=== PATIENT | male | born 1955 | race Hispanic/Latino ===

== ENCOUNTER → 2023-03-11 | Outpatient (CLI) | payer OTHER ==
[~2023-03-11] MED LIST: REGADENOSON 0.4 MG/5 ML PF SYG IVP ONE
== END | disposition home or self-care (01) ==
LOC: SHCH 08:36
PROVIDERS: ATTEND Internal Medicine Cardiovascular Disease
DX: R07.9 Chest pain, unspecified (principal); I25.9 Chronic ischemic heart disease, unspecified; I48.91 Unspecified atrial fibrillation; I48.92 Unspecified atrial flutter; I25.10 Atherosclerotic heart disease of native coronary artery without angina pectoris; I10 Essential (primary) hypertension; E78.5 Hyperlipidemia, unspecified; Z95.1 Presence of aortocoronary bypass graft
CPT/HCPCS: 78452; 96374; 93017; J2785; A9500 ×2

== ENCOUNTER → 2023-06-29 | Outpatient (CLI) | payer OTHER | END | disposition home or self-care (01) | LOC: RESP 12:39 | PROVIDERS: ATTEND Chiropractor | DX: G47.30 Sleep apnea, unspecified (principal); J45.909 Unspecified asthma, uncomplicated | CPT/HCPCS: 94060 ==

== ENCOUNTER → 2024-01-06 | Outpatient (CLI) | payer OTHER | LOC: SHCH 14:44 | PROVIDERS: ATTEND Internal Medicine Cardiovascular Disease | DX: I34.81 Nonrheumatic mitral (valve) annulus calcification (principal); I25.10 Atherosclerotic heart disease of native coronary artery without angina pectoris; I51.7 Cardiomegaly | CPT/HCPCS: 93306 ==

== ENCOUNTER 2025-01-08 23:08 | Emergency (ER) | payer OTHER ==
[~2025-01-08] VITALS: Ht 188 cm; Wt 95.7 kg
--- NOTE | 2025-01-09 00:51 | ERN ---
ED Note History of Present Illness Stated Complaint: C/O EPIGASTRIC PAIN Chief Complaint: Abdominal Pain Time Seen by MD: 00:29 Dictation: This is a 69-year-old male who came into the ER with severe epigastric pain and bloating. He stated that he had colonoscopy at 9:00 a.m. which was uneventful other than that patient was not adequately sedated and he was able to feel the pain and discomfort. He did fine all day and for dinner he apparently added extra picante sauce and hot spice and he started experiencing severe epigastric pain and discomfort. No nausea vomitings diarrhea hematemesis or melena. Temperature 98.2 pulse 72 respirations 20 blood pressure 169/81 with a pulse oximetry of 98% on room air His chronic medical problems include hypertension hyperlipidemia and coronary ar nico disease. He had CABG in 2016 Allergies: Coded Allergies: No Known Allergies (Unverified Allergy, Mild, 04/19/13) Past Medical History Past Medical History: High Cholesterol, Heart Disease, Hypertension Surgical History: Other Surgical History Other: QUADRUPLE BYPASS (2016) Family History: Negative Social History: Negative RN Note Reviewed/Agreed w/PFSH: Yes Review of System Dictation Constitutional: Negative for fever,chills, and weight loss Eyes: Negative for injury, pain,redness, and discharge ENT: Negative for injury,pain or swelling Cardiovascular: Negative for chest pain, palpitations, and edema Respiratory: Negative for shortness of breath, cough, and wheezing, Abdomen/GI: Positive for abdominal pain, denied nausea, vomiting, diarrhea, and constipation Back: Negative for injury and pain : Negative for injury, bleeding and discharge MS/Extremity: Negative for injury and deformity Skin: Negative for rash, and discoloration Neuro: Negative for headache, weakness, numbness, tingling, and seizure Psych: Negative for suicide ideation, homicidal ideation, and hallucinations Initial Vital Sign VS Vital Signs Date Time Temp Pulse Resp B/P (MAP) Pulse Ox O2 Delivery O2 Flow Rate FiO2 01/08/25 23:10 98.2 72 20 169/81 98 Room Air 01/09/25 01:56 0 21 Physical Exam Dictation General: awake, alert, NAD Head/Face: Normocephalic, atraumatic Eyes: PERRL, EOMI, vision at baseline ENT: oral cavity clear, TMs clear, no signs of infection Neck: Trachea midline, supple, no nuchal rigidity Cardiovascular: RRR, normal S1/S2, No MRGs, no JVD Respiratory: CTAB, no respiratory distress, No rales or wheezes Abdomen: Soft, mild tenderness in the epigastrium, obese non-distended, normal bowel sounds, no guarding or rebound. Skin: Warm, dry, normal turgor, no rash MS/Extremity: Pulses equal, no cyanosis, neurovascular intact, FROM Neuro: COAx4, GCS 15, strength 5/5, CN 2-12 intact, normal cerebellar exam, normal gait, Psych: Normal behavior, mood, and affect normal Extremities-trace edema without any palpable cords, Homans sign is negative Results (Laboratory/Radiology) Laboratory/Radiology Laboratory Tests Test 01/09/25 01:00 White Blood Count 9.7 K/uL (4.8-10.8) Red Blood Count 4.92 MIL/uL (4.50-6.20) Hemoglobin 14.6 g/dL (14.0-18.0) Hematocrit 42.5 % (42-54) Mean Corpuscular Volume 86.4 fL (79-99) Mean Corpuscular Hemoglobin 29.7 pg (27.0-33.0) Mean Corpuscular Hemoglobin Concent 34.4 g/dL (32.0-36.0) Red Cell Distribution Width 12.7 % (11.0-15.5) Platelet Count 208 K/uL (130-400) Mean Platelet Volume 11.0 fL (7.5-10.5) H Immature Granulocyte % (Auto) 0.3 % (0-1) Neutrophils (%) (Auto) 85.6 % (40.0-77.0) H Lymphocytes (%) (Auto) 8.8 % (21.0-51.0) L Monocytes (%) (Auto) 4.8 % (3.0-13.0) Eosinophils (%) (Auto) 0.3 % (0.0-8.0) Basophils (%) (Auto) 0.2 % (0.0-5.0) Neutrophils # (Auto) 8.3 K/uL (1.8-7.7) H Lymphocytes # (Auto) 0.9 K/uL (1.0-4.8) L Monocytes # (Auto) 0.5 K/uL (0.1-1.0) Eosinophils # (Auto) 0.03 K/uL (0.00-0.70) Basophils # (Auto) 0.02 K/uL (0.00-0.20) Absolute Immature Granulocyte (auto 0.03 K/uL (0-1) Nucleated Red Blood Cells 0.0 % (0.0-0.19) White Cell Morphology Comment See comments Sodium Level 139 mmol/L (136-145) Potassium Level 3.5 mmol/L (3.5-5.1) Chloride Level 103 mmol/L (101-111) Carbon Dioxide Level 31 mmol/L (21-32) Blood Urea Nitrogen 12 mg/dL (7-18) Creatinine 1.2 mg/dL (0.5-1.3) Glomerular Filtration Rate Calc 65 mL/min (>90) Random Glucose 141 mg/dL (70-105) H Total Calcium 8.9 mg/dL (8.5-10.1) Total Bilirubin 1.1 mg/dL (0.2-1.0) H Direct Bilirubin 0.3 mg/dL (0.0-0.3) Aspartate Amino Transf (AST/SGOT) 17 U/L (10-37) Alanine Aminotransferase (ALT/SGPT) 26 U/L (12-78) Alkaline Phosphatase 89 U/L (50-136) Total Protein 6.7 g/dL (6.0-8.3) Albumin 3.8 g/dL (3.5-5.0) Lipase 35 U/L (16-77) Labs Reviewed?: Yes ED Course ED Course Orders Procedure Category Date Status Time Abd 1vw RAD 01/08/25 Taken 23:32 12 Lead Ekg Tracing- EKG 01/08/25 Logged Technical 23:32 Cbc With Differential LAB 01/09/25 Complete 00:29 Basic Metabolic Panel LAB 01/09/25 Complete 00:29 Hepatic Function Panel LAB 01/09/25 Complete 00:29 Lipase LAB 01/09/25 Complete 00:29 0.9%Nacl 1000ml (Ns PHA 01/09/25 In Process 1000ml) 01:00 Morphine 2mg Syg PHA 01/09/25 Complete (Morphine 2mg Syg) 01:00 Ondansetron 4mg Inj PHA 01/09/25 Complete (Zofran 4mg Inj) 01:00 Lidocaine Hcl 2% PHA 01/09/25 Complete Viscous (Lidocaine Hcl 01:00 Mag/Alum/Simeth 30ml PHA 01/09/25 Complete (Maalox Plus 30ml) 01:00 Dicyclomine Hcl PHA 01/09/25 Complete (Bentyl 10mg/5ml 01:00 Famotidine 20mg Vial PHA 01/09/25 Complete (Pepcid 20mg Vial) 01:00 Mag/Alum/Simeth 30ml PHA 01/09/25 Complete (Maalox Plus 30ml) 02:30 Current Medications Medications (Trade) Dose Ordered Sig/Tayler Route PRN Reason Start Time Stop Time Status Last Admin Dose Admin Al Hydroxide/Mg Hydroxide (MAALox PLUS 30ML) 30 ml ONCE ONCE PO 01/09/25 01:00 01/09/25 01:01 DC 01/09/25 01:04 Al Hydroxide/Mg Hydroxide (MAALox PLUS 30ML) 30 ml ONCE ONCE PO 01/09/25 02:30 01/09/25 02:31 DC 01/09/25 02:43 Dicyclomine HCl (Bentyl 10mg/5ml Syrup) 10 mg ONCE ONCE PO 01/09/25 01:00 01/09/25 01:01 DC 01/09/25 01:04 Famotidine (Pepcid 20mg Vial) 20 mg ONCE ONCE IV 01/09/25 01:00 01/09/25 01:01 DC 01/09/25 01:04 Lidocaine HCl (Lidocaine HCl 2% Viscous) 10 ml ONCE ONCE PO 01/09/25 01:00 01/09/25 01:01 DC 01/09/25 01:04 Morphine Sulfate (morPHINE 2MG SYG) 2 mg ONCE ONCE IVP 01/09/25 01:00 01/09/25 01:01 DC 01/09/25 01:01 Ondansetron HCl (zoFRAN 4MG INJ) 4 mg ONCE ONCE IVP 01/09/25 01:00 01/09/25 01:01 DC 01/09/25 01:01 Sodium Chloride 1,000 ml @ 125 mls/hr ONCE ONCE IV 01/09/25 01:00 01/09/25 08:59 01/09/25 01:01 Vital Signs Date Time Temp Pulse Resp B/P (MAP) Pulse Ox O2 Delivery O2 Flow Rate FiO2 01/09/25 01:56 73 17 149/76 98 Room Air* 0 21 01/08/25 23:10 98.2 72 20 169/81 98 Room Air We will perform diagnostic labs, advanced imaging and administer medications according to the patient's complaint. Once the results are available, will review and personally interpreted the labs to rule out any acute life- threatening emergency the trach require immediate intervention and treatment. I will then re-evaluate the patient after treatment and diagnostic exams have return to determine whether the patient requires any further testing, can safely be discharged home or need further admission to hospital for additional treatment and evaluation. Labs reviewed CBC is with a normal limits CMP is overall normal bilirubin was 1.1 lipase 35 KUB showed nonspecific gaseous distention no air under the diaphragm 2:19 a.m. he felt 50% better with the symptomatic management and I updated him on the KUB He was requesting additional Mylanta/Maalox-we will assess response in the next 1 hour 3:20 a.m. patient is feeling significantly improved and wants to be discharged to home Medical Decision Making MDM MDM: Differential diagnosis: Gastritis, gastroesophageal reflux, perforated belly, ileus Rationale: Tests considered and ordered secondary to shared decision making include: Previous outside records reviewed: Old ER visits. Risk of complication and/or morbidity or mortality of patient management: None Medications-Per medication reconciliation Need for hospitalization: Patient does not meet criteria for hospitalization. Need for emergency major/minor surgery: No There are no social concerns with this patient. Prescription drug management Prescriptions will include symptomatic care Patient's prior external medical records from other ER visits were reviewed by me as indicated. Prior testing and results from previous visits were reviewed. Prior tests were taken into account with medical decision making and resource utilization, independent historian/historians were used to obtain complete medical history. I independently interpreted the test that were performed, results were reviewed by me and considered findings on radiology if ordered. Medical management and examination interpretation discussions were had by me with other qualified healthcare professionals as indicated for the patient's care. Problem List Problem List: (1) Abdominal pain DX & DISP Disposition: Discharge Departure Impression: Primary Impression: Abdominal pain Additional Impressions: Gastritis, Gaseous distention of intestine determined by X-ray Condition: Stable Additional Instructions: Patient and the caregiver have been informed of all the diagnostic tests and the imaging conducted during the today's visit to the emergency room and has verbalized understanding of the results I have personally reviewed and interpreted all diagnostic exams performed here in the ER today as well as the vital signs documented by the nursing staff. The patient is now being discharged to home and should follow up with the primary care physician or the specialist as directed by the ER staff. Follow-up with primary care provider in 1 to 2 days. Take medications as dire cted here in the emergency room. Okay to continue home medications unless otherwise discussed during your visit in the emergency room today. Return to your nearest emergency room if symptoms worsen or if there is no improvement. Call 911 if you need immediate assistance. Take Tylenol or Motrin [id number] as needed and if no contraindications are present. Increase oral hydration. A wound culture or urine culture was ordered here in the emergency room department please follow-up with primary care provider and advise them to get repeat ports from our facility. If you had any Diaz wrap/splints that were applied here, please do not remove them until you see your primary care or specialty. Referrals: TOBI KHAN (PCP) KAREN LESLIE MD Jan 09, 2025 00:51
[2025-01-09] MEDS: 0.9%NACL 1000ML 1,000 ML IV ONE (01:01)
[2025-01-09] MEDS: ondanSETRON 4MG INJ IVP ONE (01:01)
[2025-01-09] MEDS: morPHINE 2 MG SYG IVP ONE (01:01)
[2025-01-09] MEDS: FAMOTIDINE 20MG VIAL IV ONE (01:04)
[2025-01-09] MEDS: MAG/ALUM/SIMETH 30 ML UDCUP PO ONE ×2 (01:04→02:43)
[2025-01-09] MEDS: LIDOCAINE HCL 2% VISCOUS 15 ML UDCUP PO ONE (01:04)
[2025-01-09] MEDS: DICYCLOMINE HCL 10 MG/5 ML ML PO ONE (01:04)
[2025-01-09 01:12] LABS: BASOPHILS # (AUTO) 0.02 K/uL (0.00-0.20); BASOPHILS % (AUTO) 0.2 % (0.0-5.0); EOSINOPHILS # (AUTO) 0.03 K/uL (0.00-0.70); EOSINOPHILS % (AUTO) 0.3 % (0.0-8.0); HEMATOCRIT 42.5 % (42-54); IMMATURE GRANULOCYTE ABSOLUTE 0.03 K/uL (0-1); LYMPHOCYTES # (AUTO) 0.9 K/uL (1.0-4.8); LYMPHOCYTES % (AUTO) 8.8 % (21.0-51.0); MEAN CORPUSCULAR HEMOGLOBIN 29.7 pg (27.0-33.0); MEAN CORPUSCULAR HGB CONC 34.4 g/dL (32.0-36.0); MEAN CORPUSCULAR VOLUME 86.4 fL (79-99); MONOCYTES # (AUTO) 0.5 K/uL (0.1-1.0); MONOCYTES % (AUTO) 4.8 % (3.0-13.0); NEUTROPHILS # (AUTO) 8.3 K/uL (1.8-7.7); NEUTROPHILS % (AUTO) 85.6 % (40.0-77.0); PLATELET COUNT (AUTO) 208 K/uL (130-400); RED BLOOD CELL COUNT(AUTO) 4.92 MIL/uL (4.50-6.20); RED CELL DISTRIBUTION WIDTH 12.7 % (11.0-15.5); WHITE BLOOD COUNT (AUTO) 9.7 K/uL (4.8-10.8)
[2025-01-09 01:22] LABS: CREATININE 1.2 mg/dL (0.5-1.3); POTASSIUM 3.5 mmol/L (3.5-5.1)
[2025-01-09 01:27] LABS: ALBUMIN 3.8 g/dL (3.5-5.0); BILIRUBIN,DIRECT 0.3 mg/dL (0.0-0.3); BILIRUBIN,TOTAL 1.1 mg/dL (0.2-1.0); TOTAL PROTEIN, SERUM 6.7 g/dL (6.0-8.3)
[2025-01-09 03:31] VITALS: BP 142/72; PULSE 70; RESP 18; TEMP 98.6; O2SAT 99
--- NOTE | 2025-01-09 06:46 | EKG ---
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
--- NOTE | 2025-01-09 09:27 | HMCIMG ---
Exam Type: ABD 1VW Clinical Information: EPIGASTRIC PAIN S/P COLONOSCOPY IN AM Comparison: None Findings: Abdomen demonstrates no evidence of pathologic calcification or soft tissue mass. There are no radiopacities to suggest calculous disease. The intestinal gas pattern is within normal limits without evidence of dilatation to suggest obstruction or adynamic ileus. The bony structures are unremarkable. IMPRESSION: Normal abdomen.
== END 2025-01-09 03:32 | disposition home or self-care (01) ==
LOC: EDH 23:08
DX: R10.13 Epigastric pain (principal); K29.70 Gastritis, unspecified, without bleeding; R14.0 Abdominal distension (gaseous); E78.00 Pure hypercholesterolemia, unspecified; I10 Essential (primary) hypertension; Z98.890 Other specified postprocedural states
CPT/HCPCS: 99285; 80076; 80048; 83690; 85025; 36415; 74018; 93005; 96374; 96375; 96361; J3490; J2270; J7030; J2405